=== PATIENT | male | born 1995 | race Caucasian/White ===

== ENCOUNTER → 2018-12-08 14:01 | Outpatient (CLI) | payer OTHER, SELFPAY ==
[2018-12-10 15:29] LABS: Hepatitis B Surf Ab Qualitativ Nonreactive (Nonreactive)
== END ==
PROVIDERS: PCP Family Medicine; Visit Provider Family Medicine
DX: Z01.84 Encounter for antibody response examination (principal)
CPT/HCPCS: 36415; 86706; 86787

== ENCOUNTER → 2021-09-09 15:29 | Outpatient (CLI) | payer OTHER, SELFPAY ==
[2021-09-09 15:50] LABS: COVID19 -Nasal RAPID Negative (Negative)
== END ==
PROVIDERS: PCP Family Medicine; Visit Provider Nurse Practitioner
DX: Z20.822 Contact with and (suspected) exposure to COVID-19 (principal)
CPT/HCPCS: 87635

== ENCOUNTER 2022-03-12 20:11 | Emergency (ER) | payer OTHER, SELFPAY ==
[2022-03-12] VITALS (8 sets, daily range): BP systolic 138–175; BP diastolic 84–93; PULSE 89–118; RESP 19–24; TEMP 36.3; O2SAT 89–99; BMI 27.9
[2022-03-12] MEDS: LORazepam 2 MG/ML INJ 6 MG IV (20:31)
[2022-03-12] MEDS: SODIUM CHLORIDE 0.9% 1,000 ML 1000 ML IV (20:31)
[2022-03-12] MEDS: ONDANSETRON 4 MG/2 ML INJ IV (20:32)
[2022-03-12 21:26] LABS: Add Manual Diff / Slide Review NO; Basophils Absolute Auto 0 /uL (0-100); Basophils Percent Auto 0.2 % (0-2); Eosinophils Absolute Auto 0 /uL (0-450); Eosinophils Percent Auto 0.1 % (2-4); Hematocrit 42.3 % (41-53); Hemoglobin 14.6 g/dL (13.5-17.5); Lymphocytes Absolute Auto 500 /uL (1100-4500); Lymphocytes Percent Auto 4.3 % (25-40); Mean Corpuscular HGB Conc 34.5 % (30-36); Mean Corpuscular Hemoglobin 30.2 PG (26-34); Mean Corpuscular Volume 87.7 fL (80-100); Monocytes Absolute Auto 500 /uL (0-900); Monocytes Percent Auto 4.9 % (3-14); Neutrophils Absolute Auto 9500 /uL (1500-7000); Neutrophils Percent Auto 90.5 % (50-75); Platelet Count 113 X10^3/uL (150-400); Red Blood Cell Count 4.82 X10^6/uL (4.5-5.9); Red Cell Distribution Width 14.2 % (11.6-14.8); White Blood Cell Count 10.5 X10^3/uL (4.5-11.0)
[2022-03-12] MEDS: THIAMINE 100 MG in SODIUM CHLORIDE 0.9% 100 ML 404 ML IV (21:30)
[2022-03-12 21:35] LABS: Acetaminophen < 10 ug/mL (10-30); Alanine Aminotransferase 51 IU/L (<50); Albumin 4.3 g/dL (3.5-5.0); Albumin Globulin Ratio 1.7 (1.0-2.8); Alkaline Phosphatase 50 U/L (38-126); Aspartate Aminotransferase 80 IU/L (17-59); BUN Creatinine Ratio 13.9 (6-22); Blood Urea Nitrogen 14 mg/dL (9-20); Calcium 8.7 mg/dL (8.4-10.2); Carbon Dioxide 28 mmol/L (22-32); Chloride 94 mmol/L (98-107); Estimated Glomerular Filt Rate > 60.0 mL/min (>60); Ethanol (ETOH) < 10 mg/dL; Globulin 2.6 g/dL (1.7-4.1); Glucose 194 mg/dL (70-100); HEMOLYSIS < 15 (0-50); Potassium 3.7 mmol/L (3.4-5.1); Salicylate < 1.0 mg/dL (<20); Sodium 133 mmol/L (137-145); Total Protein 6.9 g/dL (6.3-8.2)
[2022-03-12 22:04] LABS: Free T4, Direct Thyroxine 0.79 ng/dL (0.78-2.19)
[2022-03-12 22:18] LABS: Thyroid Stimulating Hormone 1.84 uIU/mL (0.47-4.68)
[2022-03-13] VITALS (7 sets, daily range): BP systolic 160; BP diastolic 90; PULSE 86–103; O2SAT 95–97
[2022-03-13 01:03] LABS: UR Morphine/Opiate cutoff 300 Negative (Negative); Ur Creatinine 20 (Normal); Ur Specific Gravity 1.015 (Normal); Urine Amphetamines Negative (Negative); Urine Barbiturates Negative (Negative); Urine Benzodiazepines Positive (Negative); Urine Cocaine Negative (Negative); Urine MDMA Negative (Negative); Urine Methadone Negative (Negative); Urine Methamphetamines Negative (Negative); Urine Oxycodone Negative (Negative); Urine Phencyclidine Negative (Negative); Urine Tetrahydrocannabinol Negative (Negative); Urine Tricyclic Antidepressant Negative (Negative); Urine pH 9 (Normal)
--- NOTE | 2022-03-13 02:08 | ED_ITS ---
HPI - General Adult General Chief complaint: Toxicology Problem Stated complaint: WITHDRAWALS Time Seen by Provider: 03/12/22 20:27 Source: patient Mode of arrival: Ambulatory History of Present Illness HPI narrative: 27-year-old gentleman presents looking for help with treatment for his alcohol use disorder. He notes that he is a binge drinker, typically hard alcohol however recently he has begun drinking more daily and will drink anywhere from half to 2/3 of a 5th of hard alcohol daily. He has gone to an occasional AA meeting but has not done any formal outpatient treatment. His last drink of alcohol was 24 hours ago and he is beginning to notice a significant agitation tremor and discomfort and is presenting to the emergency department looking for help. He is accompanied by his mother who is very supportive. They have plans on discharge for him to stay with his mother at her house to begin his journey to recovery. They have removed all alcohol from the house. He plans to follow- up with primary care provider to discuss medical management of his alcohol use disorder. Related Data Previous Rx's Medication Instructions Recorded chlordiazepoxide HCl 25 mg capsule 25 mg PO TID PRN #21 cap 03/13/22 Allergies Allergy/AdvReac Type Severity Reaction Status Date / Time amoxicillin Allergy Intermediate HIVES Verified 03/12/22 20:21 sulfamethoxazole Allergy Mild RASH Verified 03/12/22 20:21 [From Bactrim] trimethoprim [From Bactrim] Allergy Mild RASH Verified 03/12/22 20:21 Sulfa (Sulfonamide Allergy Unknown Verified 03/12/22 20:21 Antibiotics) [SULFA (SULFONAMIDE ANTIBIOTICS)] Review of Systems Review of Systems Narrative: Pertinent positive and negative findings as per HPI Remainder of review of systems is otherwise unremarkable for Constitutional: Fevers, chills, ENT: No sore throat, neck pain, ear pain CV: Chest pain, palpitations, Respiratory: Cough, wheeze, dyspnea : Dysuria, hematuria, Patient History Medical History (Updated 03/13/22 @ 04:03 by Amira Hair MD) Alcohol use disorder Social History Smoking Status: Never smoker Smoking Status: Never smoker alcohol intake frequency: 3 or more drinks per day Substance Use Type: does not use Exam Initial Vital Signs Initial Vital Signs: Vital Signs Temperature 97.4 F L 03/12/22 20:17 Pulse Rate 118 H 03/12/22 20:17 Respiratory Rate 24 03/12/22 20:17 Blood Pressure 175/93 H 03/12/22 20:17 Pulse Oximetry 99 03/12/22 20:17 General: Healthy appearing, in moderate amount of distress but still Able to give a complete and coherent history. Well-nourished well-developed HEENT: Moist mucous membranes, injected sclera with wide reactive pupils, Respiratory: Lungs are clear to auscultation, no wheezing no rales no rhonchi. Full and symmetrical air movement Cardiac: Tachycardic but otherwiseRegular rate and rhythm no murmurs no bruits Abdomen: Soft, nontender, no organomegaly, no liver tendernessgood bowel tones, no flank pain Skin: Warm and dry, no rashes, no spider hemangiomas Neurologic: Tremor noted, otherwise Grossly neurologically intact with no obvious asymmetries or abnormalities Extremities: No trauma, well perfused Psych: Cooperative, appropriate insight and affect Course Orders Ordered: ED Orders 03/12/22 21:15 Acetaminophen Stat Complete Blood Count AUTO DIFF Stat Comprehensive Metabolic Panel Stat Ethanol (ETOH) Stat Free T4, Direct Thyroxine Stat Salicylate Stat Thyroid Stimulating Hormone Stat 03/13/22 00:30 Urine Drug Screen, Rapid Stat Discontinued Medications Chlordiazepoxide HCl (Chlordiazepoxide 25 Mg Capsule) 25 mg PO NOW ONE Stop: 03/13/22 02:23 Last Admin: 03/13/22 02:31 Dose: 25 mg Documented by: DON Thiamine HCl 100 mg/ Sodium (Chloride) 101 mls @ 404 mls/hr IV NOW ONE Stop: 03/12/22 20:28 Last Infusion: 03/12/22 22:40 Dose: 0 mls/hr Documented by: Admin: 03/12/22 21:30 Dose: 404 mls/hr Documented by: DON Sodium Chloride (Normal Saline 0.9%) 1,000 mls @ 1,000 mls/hr IV BOLUS ONE Stop: 03/12/22 21:26 Last Infusion: 03/12/22 22:40 Dose: 0 mls/hr Documented by: Admin: 03/12/22 20:31 Dose: 1,000 mls/hr Documented by: CATERINA Lorazepam (Lorazepam 2 Mg/Ml Inj) 6 mg IV NOW ONE Stop: 03/12/22 20:28 Last Admin: 03/12/22 20:31 Dose: 6 mg Documented by: CATERINA Lorazepam (Lorazepam 2 Mg/Ml Inj) 4 mg IV NOW ONE Stop: 03/13/22 02:23 Last Admin: 03/13/22 02:32 Dose: 4 mg Documented by: DON Ondansetron HCl (Ondansetron 4 Mg/2 Ml Inj) 4 mg IV NOW ONE Stop: 03/12/22 20:28 Last Admin: 03/12/22 20:32 Dose: 4 mg Documented by: CATERINA Vital Signs Vital signs: Vital Signs - 8 hr 03/12/22 20:17 03/12/22 21:19 03/12/22 21:30 Temperature 97.4 F L Pulse Rate 118 H 97 H 100 H Respiratory Rate 24 20 Blood Pressure 175/93 H Pulse Oximetry 99 89 L 97 03/12/22 22:00 03/12/22 22:30 03/12/22 22:39 Temperature Pulse Rate 93 H 91 H 99 H Respiratory Rate 24 19 Blood Pressure 138/84 Pulse Oximetry 95 93 96 03/12/22 23:00 03/12/22 23:30 03/13/22 00:00 Temperature Pulse Rate 92 H 89 88 Respiratory Rate 20 19 Blood Pressure Pulse Oximetry 94 96 96 03/13/22 00:50 03/13/22 01:11 03/13/22 01:12 Temperature Pulse Rate 102 H 103 H 98 H Respiratory Rate Blood Pressure 160/90 H Pulse Oximetry 95 03/13/22 01:30 03/13/22 02:00 03/13/22 02:30 Temperature Pulse Rate 86 91 H 93 H Respiratory Rate Blood Pressure Pulse Oximetry 97 97 97 Medical Decision Making Lab Data Result diagrams: 03/12/22 21:15 03/12/22 21:15 Labs: Lab Results 03/12/22 03/12/22 03/12/22 Range/Units 21:15 21:15 21:15 WBC 10.5 (4.5-11.0) X10^3/uL RBC 4.82 (4.5-5.9) X10^6/uL Hgb 14.6 (13.5-17.5) g/dL Hct 42.3 (41-53) % MCV 87.7 (80-100) fL MCH 30.2 (26-34) PG MCHC 34.5 (30-36) % RDW 14.2 (11.6-14.8) % Plt Count 113 L (150-400) X10^3/uL Neut % (Auto) 90.5 H (50-75) % Lymph % (Auto) 4.3 L (25-40) % [place] % (Auto) 4.9 (3-14) % Eos % (Auto) 0.1 L (2-4) % Baso % (Auto) 0.2 (0-2) % Neut # (Auto) 9500 H (0904-6002) /uL Lymph # (Auto) 500 L (8920-6632) /uL [place] # (Auto) 500 (0-900) /uL Eos # (Auto) 0 (0-450) /uL Baso # (Auto) 0 (0-100) /uL Sodium 133 L (137-145) mmol/L Potassium 3.7 (3.4-5.1) mmol/L Chloride 94 L (98-107) mmol/L Carbon Dioxide 28 (22-32) mmol/L BUN 14 (9-20) mg/dL Creatinine 1.01 (0.66-1.25) mg/dL Estimated GFR > 60.0 (>60) mL/min BUN/Creatinine Ratio 13.9 (6-22) Glucose 194 H (70-100) mg/dL Calcium 8.7 (8.4-10.2) mg/dL Total Bilirubin 1.0 (0.2-1.3) mg/dL AST 80 H (17-59) IU/L ALT 51 H (<50) IU/L Alkaline Phosphatase 50 (38-126) U/L Total Protein 6.9 (6.3-8.2) g/dL Albumin 4.3 (3.5-5.0) g/dL Globulin 2.6 (1.7-4.1) g/dL Albumin/Globulin Ratio 1.7 (1.0-2.8) TSH 1.84 (0.47-4.68) uIU/mL Free T4 0.79 (0.78-2.19) ng/dL Salicylates < 1.0 (<20) mg/dL U Opiates 300ng/mL cut (Negative) Ur Oxycodone Screen (Negative) Urine Methadone Screen (Negative) Acetaminophen < 10 (10-30) ug/mL Ur Barbiturates Screen (Negative) U Tricyclic Antidepress (Negative) Ur Phencyclidine Scrn (Negative) Ur Amphetamines Screen (Negative) U Methamphetamines Scrn (Negative) Ur MDMA Scrn (Ecstasy) (Negative) U Benzodiazepines Scrn (Negative) Urine Cocaine Screen (Negative) U Marijuana (THC) Screen (Negative) Ethyl Alcohol < 10 ( - 10) mg/dL 03/13/22 Range/Units 00:30 WBC (4.5-11.0) X10^3/uL RBC (4.5-5.9) X10^6/uL Hgb (13.5-17.5) g/dL Hct (41-53) % MCV (80-100) fL MCH (26-34) PG MCHC (30-36) % RDW (11.6-14.8) % Plt Count (150-400) X10^3/uL Neut % (Auto) (50-75) % Lymph % (Auto) (25-40) % [place] % (Auto) (3-14) % Eos % (Auto) (2-4) % Baso % (Auto) (0-2) % Neut # (Auto) (0095-9436) /uL Lymph # (Auto) (8490-7994) /uL [place] # (Auto) (0-900) /uL Eos # (Auto) (0-450) /uL Baso # (Auto) (0-100) /uL Sodium (137-145) mmol/L Potassium (3.4-5.1) mmol/L Chloride (98-107) mmol/L Carbon Dioxide (22-32) mmol/L BUN (9-20) mg/dL Creatinine (0.66-1.25) mg/dL Estimated GFR (>60) mL/min BUN/Creatinine Ratio (6-22) Glucose (70-100) mg/dL Calcium (8.4-10.2) mg/dL Total Bilirubin (0.2-1.3) mg/dL AST (17-59) IU/L ALT (<50) IU/L Alkaline Phosphatase (38-126) U/L Total Protein (6.3-8.2) g/dL Albumin (3.5-5.0) g/dL Globulin (1.7-4.1) g/dL Albumin/Globulin Ratio (1.0-2.8) TSH (0.47-4.68) uIU/mL Free T4 (0.78-2.19) ng/dL Salicylates (<20) mg/dL U Opiates 300ng/mL cut Negative (Negative) Ur Oxycodone Screen Negative (Negative) Urine Methadone Screen Negative (Negative) Acetaminophen (10-30) ug/mL Ur Barbiturates Screen Negative (Negative) U Tricyclic Antidepress Negative (Negative) Ur Phencyclidine Scrn Negative (Negative) Ur Amphetamines Screen Negative (Negative) U Methamphetamines Scrn Negative (Negative) Ur MDMA Scrn (Ecstasy) Negative (Negative) U Benzodiazepines Scrn Positive H (Negative) Urine Cocaine Screen Negative (Negative) U Marijuana (THC) Screen Negative (Negative) Ethyl Alcohol ( - 10) mg/dL Urine Dip Bedside Urine Glucose Negative Bedside Urine Bilirubin - Negative Bedside Urine Ketone - Negative Urine Specific [place] 1.010 Bedside Urine Occult Blood - Negative Bedside Urine pH 8.0 Bedside Urine Protein - Negative Bedside Urine Urobilinogen - Negative Bedside Urine Nitrite - Negative Bedside Urine Leukocytes - Negative Esterase Point of care testing: Urine Dip Bedside Urine Glucose Negative Bedside Urine Bilirubin - Negative Bedside Urine Ketone - Negative Urine Specific [place] 1.010 Bedside Urine Occult Blood - Negative Bedside Urine pH 8.0 Bedside Urine Protein - Negative Bedside Urine Urobilinogen - Negative Bedside Urine Nitrite - Negative Bedside Urine Leukocytes - Negative Esterase [facility] Narrative Medical decision making narrative: 27-year-old gentleman with alcohol use disorder of for which he is seeking care. He still has multiple resources including a job, a place to live a caring family and family that will help him through the next 6 weeks as well as help him to go she [facility] to get the medical care that he will need well he is beginning his recovery. 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 Suggested that taking a week off work to deal with his withdrawal symptoms and use benzodiazepines as needed for his withdrawal is certainly a safer option. At this point he is absolutely not safe to return to work in 3 hours. He was amenable to to focusing on his recovery and a work notice is given. Initial CIWA score was 26 and he was given 6 mg of IV Ativan with significant with symptoms. He required additional 4 mg of Ativan and was discharged home to the care of his mother with of Librium taper decreasing by 25 mg a day over 60. . He does have plans to continue with AA meetings and follow-up within new primary care provider. Strongly advised at least a formal outpatient alcohol treatment program and he seemed quite interested in pursuing this. This point he is safe for discharge home Discharge Plan Departure Patient Disposition: Home Clinical Impression: Alcohol withdrawal syndrome, Alcohol use disorder, Elevated liver enzymes Instructions: DI for Alcohol Use Disorder Activity Restrictions/Additional Instructions: Thank you for coming in tonight I am glad that you are deciding to stop drinking. Your lab work did show slightly elevated liver enzymes the does indicate the alcohol is affecting your liver. Staying away from alcohol completely will allow your liver to return to normal. You are given Ativan in the emergency department to help with your acute withdrawal symptoms. I am giving you a prescription of Librium to help with y our withdrawal symptoms over the next 5 days. Day 1: 2 capsules every 8 hours Day 2: 2 capsules am and pm, 1 capsule mid day Day 3. 2 capsules bedtime, 1 capsule am and mid day Day 4. 1 capsule 3 times per day Day 5: 1 capsule 2 times a day Day 6: 1 capsule I encourage you to continue to work on setting up an appointment with Dr. Ramires to talk about additional options. You can look up alcoholic anonymous and find all of the meeting sitter available, including online meetings. I wish you the very best Prescriptions: New chlordiazepoxide HCl 25 mg capsule 25 mg PO TID PRN (Reason: alcohol withdrawal) Qty: 21 0RF Referrals: Siva Ponce MD [Primary Care Provider] - Stand Alone Forms: Naloxone Standing Order MICHEAL, Work Release Note
[2022-03-13] MEDS: chlordiazePOXIDE 25 MG CAPSULE PO (02:31)
[2022-03-13] MEDS: LORazepam 2 MG/ML INJ 4 MG IV (02:32)
== END 2022-03-13 03:01 | disposition home or self-care (01) ==
PROVIDERS: Emergency Provider Emergency Medicine; PCP Family Medicine
DX: F10.139 Alcohol abuse with withdrawal, unspecified (principal); R74.8 Abnormal levels of other serum enzymes; Y90.0 Blood alcohol level of less than 20 mg/100 ml
CPT/HCPCS: 36415; 80053; 80305; 80320; 80329; 81003; 84439; 84443; 85025; 96361; 96365; 96375; 96376; 99284; G0480; J2060; J2405

== ENCOUNTER → 2023-01-03 13:39 | Outpatient (ROUT) | payer OTHER, SELFPAY ==
[2023-01-03 14:27] LABS: Influenza A - CEPHEID Flu A NEGATIVE (NEGATIVE); Influenza B - CEPHEID Flu B NEGATIVE (NEGATIVE); Respiratory Syncytial Virus Negative (Negative)
[2023-01-03 14:28] LABS: COVID-19 CEPHEID 4-PLEX PCR Negative (Negative)
== END ==
PROVIDERS: PCP Family Medicine; Visit Provider Registered Nurse
DX: R05.1 Acute cough (principal); J02.9 Acute pharyngitis, unspecified
CPT/HCPCS: 0241U

== ENCOUNTER → 2023-01-07 12:08 | Outpatient (ROUT) | payer OTHER, SELFPAY ==
[2023-01-07 13:01] LABS: Influenza A - CEPHEID Flu A NEGATIVE (NEGATIVE); Influenza B - CEPHEID Flu B NEGATIVE (NEGATIVE); Respiratory Syncytial Virus Negative (Negative)
[2023-01-07 13:13] LABS: COVID-19 CEPHEID 4-PLEX PCR Negative (Negative)
== END ==
PROVIDERS: PCP Family Medicine; Visit Provider Registered Nurse
DX: J06.9 Acute upper respiratory infection, unspecified (principal)
CPT/HCPCS: 0241U

== ENCOUNTER → 2023-05-07 08:37 | Outpatient (CLI) | payer OTHER, SELFPAY ==
--- NOTE | 2023-05-07 | DI.US.S_ITS ---
PROCEDURE: US RENAL COMPLETE INDICATIONS: CHRONIC KIDNEY DISEASE STAGE 3A TECHNIQUE: Real-time scanning was performed of the kidneys and bladder, with image documentation. COMPARISON: None. FINDINGS: Kidneys: Kidneys are normal in size. Right kidney measures 10.8 cm long; left kidney measures 11.1 cm long. Right renal cortical thickness is 1.0 cm; left renal cortical thickness is 1.4 cm. Renal cortical echotexture is increased. No hydronephrosis or nephrolithiasis. No suspicious solid mass lesions. Bladder: Pre-void bladder volume is 345 mL. Post-void residual is 15 mL. Pre-void images demonstrate no intraluminal masses or stones. On pre-void images, both ureteral jets are noted with color Doppler interrogation. (Of note, ureteral jets may not be detectable in up to 25% of cases due to insufficient differences in specific gravity between ureteral and bladder urine). Miscellaneous: No free pelvic fluid. IMPRESSION: Increased renal parenchymal echogenicity, consistent with chronic parenchymal disease. Dictated by: Andre Cool M.D. on 05/07/2023 at 9:50 Approved by: Andre Cool M.D. on 05/07/2023 at 9:51
== END ==
PROVIDERS: PCP Family Medicine; Referring Provider Family Medicine; Visit Provider Family Medicine
DX: N18.31 Chronic kidney disease, stage 3a (principal)
CPT/HCPCS: 76770

== ENCOUNTER → 2023-07-01 16:15 | Outpatient (CLI) | payer OTHER, SELFPAY ==
[2023-07-01 17:25] LABS: Hemoglobin 15.4 g/dL (13.5-17.5)
[2023-07-01 17:43] LABS: BUN Creatinine Ratio 17.6 (6-22); Blood Urea Nitrogen 21 mg/dL (9-20); Calcium 8.9 mg/dL (8.4-10.2); Carbon Dioxide 31 mmol/L (22-32); Chloride 99 mmol/L (98-107); Estimated Glomerular Filt Rate > 60 mL/min (>60); Glucose 95 mg/dL (70-100); HEMOLYSIS 26 (0-50); Potassium 3.5 mmol/L (3.4-5.1); Sodium 139 mmol/L (137-145)
[2023-07-01 17:44] LABS: Creatinine Urine Random 90.4 mg/dL; Protein (Total) Urine Random 6 mg/dL (0-12); Protein Creatinine Ratio Urine 0.06 GRAM/24H
== END ==
PROVIDERS: PCP Family Medicine; Referring Provider Student in an Organized Health Care Education/Training Program; Visit Provider Student in an Organized Health Care Education/Training Program
DX: N05.9 Unspecified nephritic syndrome with unspecified morphologic changes (principal); D64.9 Anemia, unspecified; R80.9 Proteinuria, unspecified
CPT/HCPCS: 36415; 80048; 82570; 84156; 85014; 85018

== ENCOUNTER 2023-09-20 01:47 | Emergency (ER) | payer OTHER, SELFPAY ==
[2023-09-20] VITALS (10 sets, daily range): BP systolic 126–153; BP diastolic 78–104; PULSE 75–106; RESP 18–20; TEMP 36.9; O2SAT 94–98; BMI 26.5
--- NOTE | 2023-09-20 01:49 | ED.GENADULT ---
HPI - General Adult General Chief complaint: Toxicology Problem Stated complaint: withdrawl Time Seen by Provider: 09/20/23 01:48 History of Present Illness HPI narrative: 28-year old male, nonsmoker with heavy alcohol history presents with family in the chief complaint of wanting help with quitting alcohol. He states he drinks a 1/5th of whiskey daily and last drink was about 6 hours ago. He is gone through withdrawals before but has never had seizure. He was most recently at an alcohol detox facility about a year and a half ago and is hoping to find a program to help him through this. He has some mild headache and is feeling agitated and anxious. He feels sweaty with a racing heart, nauseated with minimal abdominal pain. He denies any auditory, visual or tactile hallucinations. he states that up until about a week or 2 ago he would typically binge drink for days at a time and then go without for awhile before drinking heavy for a few days again but for the past week or 2 he has been drinking at least 1/5th per day. He mentions that he works at the [employer] and that he would like to pursue a program through his work Related Data Previous Rx's Medication Instructions Recorded chlordiazepoxide HCl 25 mg capsule 25 mg PO TID PRN alcohol 03/13/22 withdrawal #21 caps chlordiazepoxide HCl 25 mg capsule 25 mg PO BID PRN alcohol 09/20/23 withdrawal #32 caps Allergies Allergy/AdvReac Type Severity Reaction Status Date / Time amoxicillin Allergy Intermediate HIVES Verified 03/12/22 20:21 sulfamethoxazole Allergy Mild RASH Verified 03/12/22 20:21 [From Bactrim] trimethoprim [From Bactrim] Allergy Mild RASH Verified 03/12/22 20:21 Sulfa (Sulfonamide Allergy Unknown Verified 03/12/22 20:21 Antibiotics) [SULFA (SULFONAMIDE ANTIBIOTICS)] Review of Systems Review of Systems Narrative: GENERAL: see HPI HEENT: Denies sinus pain, ear pain, sore throat, difficulty swallowing, dizziness. RESPIRATORY: Denies dyspnea, cough, wheezing, hemoptysis, sputum. CARDIOVASCULAR: see HPI GASTROINTESTINAL: see HPI : Denies dysuria, frequency, incontinence, hematuria, urinary retention. MUSCULOSKELETAL: denies weakness, joint pain, or bony pain SKIN: Denies rash, skin lesions, or other NEUROLOGIC: see HPI PSYCHIATRIC: see HPI 12 point review of systems is negative except for those stated above Patient History Medical History (Updated 09/20/23 @ 05:01 by Nicolas Goode DO) Alcohol use disorder Social History Smoking Status: Never smoker Smoking Status: Never smoker alcohol intake frequency: 3 or more drinks per day Substance Use Type: does not use Exam Narrative Exam Narrative: GENERAL: [28] year old patient appears stated age. Well-developed patient, in moderate distress, anxious and diaphoretic HEAD: Atraumatic. Normocephalic. EYES: Pupils equal round and reactive. Extraocular motions intact. No scleral icterus. No injection or drainage. ENT: Nose without bleeding, purulent drainage. Throat without erythema, tonsillar hypertrophy or exudate. Airway patent. NECK: Trachea midline. Non tender CARDIOVASCULAR: tachycardic but regular rhythm without murmurs, gallops, or rubs. RESPIRATORY: Clear to auscultation. Breath sounds equal bilaterally. No wheezes, rales, or rhonchi. GASTROINTESTINAL: Abdomen soft, non-tender, nondistended. EXTREMITIES: No edema or joint tenderness. BACK: Nontender without deformity or crepitance. No flank tenderness. NEURO: AOx3. SKIN: No rash or erythema of visible areas Initial Vital Signs Initial Vital Signs: Vital Signs Temperature 98.4 F 09/20/23 01:50 Pulse Rate 106 H 09/20/23 01:50 Respiratory Rate 18 09/20/23 01:50 Blood Pressure 145/104 H 09/20/23 01:50 Pulse Oximetry 98 09/20/23 01:50 Oxygen Delivery Method Room Air 09/20/23 01:50 Course Course Course Narrative: TANJA-Fabiano for Alcohol Withdrawal from [employer] on 09/20/2023 All calculations should be rechecked by clinician prior to use RESULT SUMMARY: 19 points Patients with scores >= may require medication for withdrawal. INPUTS: Nausea/vomiting ?> 4 = Intermittent nausea with dry heaves Tremor ?> 4 = Moderate, with patient's arms extended Paroxysmal sweats ?> 3 = (More severe symptoms) Anxiety ?> 3 = (More severe symptoms) Agitation ?> 3 = (More severe symptoms) Tactile disturbances ?> 0 = None Auditory disturbances ?> 0 = Not present Visual disturbances ?> 0 = Not present Headache/fullness in head ?> 2 = Mild Orientation/clouding of sensorium ?> 0 = Oriented, can do serial additions Orders Ordered: ED Orders 09/20/23 02:04 Complete Blood Count AUTO DIFF Stat Comprehensive Metabolic Panel Stat Ethanol (ETOH) Stat Lipase Stat Magnesium Stat 09/20/23 02:30 Urine Microscopic Stat 09/20/23 03:15 [place] [facility] [place] Discontinued Medications Sodium Chloride (Normal Saline 0.9%) 1,000 mls @ 1,000 mls/hr IV BOLUS ONE Stop: 09/20/23 02:56 Last Infusion: 09/20/23 04:36 Dose: Infused Documented By: Admin: 09/20/23 02:17 Dose: 1,000 mls/hr Documented By: MAYNOR Ondansetron HCl (Ondansetron 4 Mg/2 Ml Inj) 4 mg IV NOW ONE Stop: 09/20/23 01:58 Last Admin: 09/20/23 02:17 Dose: 4 mg Documented By: MAYNOR Phenobarbital (Phenobarbital 65 Mg/Ml Vial) 260 mg IV NOW ONE Stop: 09/20/23 01:58 Last Admin: 09/20/23 02:18 Dose: 260 mg Documented By: MAYNOR Phenobarbital (Phenobarbital 65 Mg/Ml Vial) 260 mg IV NOW ONE Stop: 09/20/23 02:56 Last Admin: 09/20/23 03:01 Dose: 260 mg Documented By: MAYNOR Vital Signs Vital signs: Vital Signs - 8 hr 09/20/23 01:50 09/20/23 01:57 09/20/23 02:00 Temperature 98.4 F Pulse Rate 106 H 75 93 H Respiratory Rate 18 Blood Pressure 145/104 H Pulse Oximetry 98 98 97 Oxygen Delivery Method Room Air 09/20/23 02:08 09/20/23 02:08 09/20/23 02:30 Temperature Pulse Rate 90 Respiratory Rate Blood Pressure 153/90 H 150/87 H Pulse Oximetry 97 Oxygen Delivery Method 09/20/23 02:30 09/20/23 03:00 09/20/23 03:00 Temperature Pulse Rate 90 91 H Respiratory Rate 18 Blood Pressure 143/88 H Pulse Oximetry 97 96 Oxygen Delivery Method Room Air 09/20/23 03:30 09/20/23 03:30 09/20/23 04:00 Temperature Pulse Rate 86 Respiratory Rate 20 Blood Pressure 134/83 127/83 Pulse Oximetry 94 Oxygen Delivery Method 09/20/23 04:00 09/20/23 04:30 09/20/23 04:30 Temperature Pulse Rate 82 85 Respiratory Rate Blood Pressure 126/78 Pulse Oximetry 96 95 Oxygen Delivery Method Room Air Room Air 09/20/23 05:00 09/20/23 05:00 Temperature Pulse Rate 93 H Respiratory Rate Blood Pressure 134/90 Pulse Oximetry 97 Oxygen Delivery Method Room Air Medical Decision Making Lab Data 09/20/23 02:04 09/20/23 02:04 Labs: Lab Results 09/20/23 09/20/23 Range/Units 02:04 02:30 WBC 10.6 (4.5-11.0) X10^3/uL RBC 5.76 (4.5-5.9) X10^6/uL Hgb 17.4 (13.5-17.5) g/dL Hct 50.1 (41-53) % MCV 87.1 (80-100) fL MCH 30.1 (26-34) PG MCHC 34.6 (30-36) % RDW 14.7 (11.6-14.8) % Plt Count 258 (150-400) X10^3/uL Neut % (Auto) 71.8 (50-75) % Lymph % (Auto) 19.9 L (25-40) % [place] % (Auto) 7.7 (3-14) % Eos % (Auto) 0.3 L (2-4) % Baso % (Auto) 0.3 (0-2) % Neut # (Auto) 7600 H (1893-7247) /uL Lymph # (Auto) 2100 (3893-0047) /uL [place] # (Auto) 800 (0-900) /uL Eos # (Auto) 0 (0-450) /uL Baso # (Auto) 0 (0-100) /uL Sodium 137 (137-145) mmol/L Potassium 3.7 (3.4-5.1) mmol/L Chloride 96 L (98-107) mmol/L Carbon Dioxide 26 (22-32) mmol/L BUN 6 L (9-20) mg/dL Creatinine 1.20 (0.66-1.25) mg/dL Estimated GFR > 60 (>60) mL/min BUN/Creatinine Ratio 5.0 L (6-22) Glucose 119 H (70-100) mg/dL Calcium 9.9 (8.4-10.2) mg/dL Magnesium 2.0 (1.6-2.3) mg/dL Total Bilirubin 1.1 (0.2-1.3) mg/dL AST 102 H (17-59) IU/L ALT 82 H (<50) IU/L Alkaline Phosphatase 82 (38-126) U/L Total Protein 8.2 (6.3-8.2) g/dL Albumin 4.9 (3.5-5.0) g/dL Globulin 3.3 (1.7-4.1) g/dL Albumin/Globulin Ratio 1.5 (1.0-2.8) Lipase 223 (23-300) U/L Urine RBC None seen (0-5/HPF) Urine WBC None seen (0-5/HPF) Ur Squamous Epith Cells None seen (0-5/HPF) Amorphous Sediment 4+ Urine Bacteria None seen (None) Ur Culture Indicated? Cult not indicated Ethyl Alcohol 92 H ( - 10) mg/dL Urine Dip Bedside Urine Glucose Negative Bedside Urine Bilirubin - Negative Bedside Urine Ketone +/- 5 Urine Specific [place] 1.015 Bedside Urine Occult Blood - Negative Bedside Urine pH 6 Bedside Urine Protein +/- 15 Bedside Urine Urobilinogen - Negative Bedside Urine Nitrite - Negative Bedside Urine Leukocytes - Negative Esterase Point of care testing: Urine Dip Bedside Urine Glucose Negative Bedside Urine Bilirubin - Negative Bedside Urine Ketone +/- 5 Urine Specific [place] 1.015 Bedside Urine Occult Blood - Negative Bedside Urine pH 6 Bedside Urine Protein +/- 15 Bedside Urine Urobilinogen - Negative Bedside Urine Nitrite - Negative Bedside Urine Leukocytes - Negative Esterase [facility] Narrative Medical decision making narrative: [28] year old patient presents with concerns of alcohol withdrawal and desire for detox Prior Charts reviewed in our EMR Primary Historian: patient Labs reviewed and interpreted by myself: no leukocytosis or left shift, no signs of anemia, primary electrolytes and kidney function at baseline, slight elevation in LFTs not surprising given alcohol history, Etoh 92 on arrival Tx: Phenobarb 260 x2 Re-evaluation: patient with significant improvement after phenobarb, CIWA down to low single digits, resting comfortably Patient's symptoms improved over duration of stay with above-stated therapies. He no longer wants to stay to speak with social work and would prefer to go home and use resources there to help establish. consult placed to social work and encouraged to call patient later today Findings and discharge diagnosis discussed with patient/family followed by verbalization of understanding Return precautions discussed with patient/family whom verbalize understanding of diagnosis and plan Discharge Plan Departure Patient Disposition: Home Clinical Impression: Alcohol withdrawal syndrome Instructions: DI for Alcohol Use Disorder Activity Restrictions/Additional Instructions: *You have been diagnosed with [ alcohol abuse and withdrawal] *What to do: *Please continue to take your regular medications as directed. [x ] New medication prescriptions sent to your pharmacy: [[facility] ] [ ] New medication written as a paper prescription [ ] No new medications given *Please follow up with your primary care provider in 2-3 days, call for an appointment. Let them know you were seen in the Emergency Department and that we ask that you be seen in follow up. We will electronically transmit a record of today's note if your PCP is in our system *If you do not have a primary care provider please contact the [facility] Resource line at [phone]. They will ask some questions about your medical history and help get you set up with a doctor in the community. *Return to Emergency Department if you should have any new, worsening or concerning symptoms, such as [fever greater than 101 F, shaking chills, worsening pain, persistent vomiting or other bothersome symptoms] Prescriptions: New chlordiazepoxide HCl 25 mg capsule 25 mg PO BID PRN (Reason: alcohol withdrawal) Qty: 32 0RF Rx Instructions: Day 1: 50mg POq4 Day 2: 50mg POq6 Day 3: 50mg POq8 Day 4: 50mg POq12 Day 5: 50mg POqhs #32 No Action chlordiazepoxide HCl 25 mg capsule 25 mg PO TID PRN (Reason: alcohol withdrawal) Qty: 21 0RF Referrals: Alcohol [facility] [Outside] [facility] [Outside] Alcohol [facility] [Outside] Abelino Ramires MD [Primary Care Provider] - Stand Alone Forms: Patient Portal/API
--- NOTE | 2023-09-20 02:07 | PC.NURSE ---
During triage, pt became nauseated and feeling like he was going to pass out. BP at this time was 82/51. Provider in room at this time.
[2023-09-20 02:13] LABS: Add Manual Diff / Slide Review NO; Basophils Absolute Auto 0 /uL (0-100); Basophils Percent Auto 0.3 % (0-2); Eosinophils Absolute Auto 0 /uL (0-450); Eosinophils Percent Auto 0.3 % (2-4); Hematocrit 50.1 % (41-53); Hemoglobin 17.4 g/dL (13.5-17.5); Lymphocytes Absolute Auto 2100 /uL (1100-4500); Lymphocytes Percent Auto 19.9 % (25-40); Mean Corpuscular HGB Conc 34.6 % (30-36); Mean Corpuscular Hemoglobin 30.1 PG (26-34); Mean Corpuscular Volume 87.1 fL (80-100); Monocytes Absolute Auto 800 /uL (0-900); Monocytes Percent Auto 7.7 % (3-14); Neutrophils Absolute Auto 7600 /uL (1500-7000); Neutrophils Percent Auto 71.8 % (50-75); Platelet Count 258 X10^3/uL (150-400); Red Blood Cell Count 5.76 X10^6/uL (4.5-5.9); Red Cell Distribution Width 14.7 % (11.6-14.8); White Blood Cell Count 10.6 X10^3/uL (4.5-11.0)
[2023-09-20] MEDS: SODIUM CHLORIDE 0.9% 1,000 ML 1000 ML IV (02:17)
[2023-09-20] MEDS: ONDANSETRON 4 MG/2 ML INJ IV (02:17)
[2023-09-20] MEDS: PHENobarbital 65 MG/ML VIAL 260 MG IV ×2 (02:18→03:01)
[2023-09-20 02:24] LABS: Alanine Aminotransferase 82 IU/L (<50); Albumin 4.9 g/dL (3.5-5.0); Albumin Globulin Ratio 1.5 (1.0-2.8); Alkaline Phosphatase 82 U/L (38-126); Aspartate Aminotransferase 102 IU/L (17-59); Bilirubin Total 1.1 mg/dL (0.2-1.3); Blood Urea Nitrogen 6 mg/dL (9-20); Calcium 9.9 mg/dL (8.4-10.2); Carbon Dioxide 26 mmol/L (22-32); Chloride 96 mmol/L (98-107); Estimated Glomerular Filt Rate > 60 mL/min (>60); Ethanol (ETOH) 92 mg/dL; Globulin 3.3 g/dL (1.7-4.1); Glucose 119 mg/dL (70-100); HEMOLYSIS 21 (0-50); Lipase 223 U/L (23-300); Potassium 3.7 mmol/L (3.4-5.1); Sodium 137 mmol/L (137-145); Total Protein 8.2 g/dL (6.3-8.2)
[2023-09-20 03:19] LABS: Amorphous Sediment Urine 4+; Bacteria Urine None Seen; Culture Indicated Urine Cult Not Indicated; RBC Urine None Seen (0-5/HPF); Squamous Epithelial Cell Urine None Seen (0-5/HPF); WBC Urine None Seen (0-5/HPF)
--- NOTE | 2023-09-20 13:59 | CM.SWNOTE ---
ED CASHIER GENERAL follow up note CASHIER GENERAL receives consult for follow up call. CASHIER GENERAL calls patient, no answer, CASHIER GENERAL is not able to leave VM due to voicemail box full. Angeles Moreira, EMPLOYMENT AND CLAIMS AIDE
== END 2023-09-20 05:09 | disposition home or self-care (01) ==
PROVIDERS: Emergency Provider Emergency Medicine; PCP Family Medicine
DX: F10.939 Alcohol use, unspecified with withdrawal, unspecified (principal)
CPT/HCPCS: 36415; 80053; 80320; 81003; 81015; 83690; 83735; 85025; 96361; 96374; 96375; 96376; 99284; J2405; J2560

== ENCOUNTER 2024-11-15 19:33 | Emergency (ER) | payer OTHER, SELFPAY ==
[2024-11-15 19:35] VITALS: BP 139/90; PULSE 83; RESP 16; TEMP 37.1; O2SAT 99; BMI 27.9
--- NOTE | 2024-11-15 19:50 | ED.GENADULT ---
HPI - General Adult General Chief complaint: Fever Stated complaint: flu like symptoms, facial and ear rash Time Seen by Provider: 11/15/24 19:36 Source: patient Mode of arrival: Family Vehicle History of Present Illness HPI narrative: Patient is a 29-year-old male. Here evaluation of a couple days of flu-like symptoms to include fevers and chills and a sore throat. He was now developing a rash on his face. In front of both of his ears. He was also now has a sore throat. He does have some sinus congestion. No problems breathing. No coughing. No rash on other parts of his body. No new exposures. Related Data Previous Rx's Medication Instructions Recorded chlordiazepoxide HCl 25 mg capsule 25 mg PO TID PRN alcohol 03/13/22 withdrawal #21 caps chlordiazepoxide HCl 25 mg capsule 25 mg PO BID PRN alcohol 09/20/23 withdrawal #32 caps cephalexin 500 mg capsule 500 mg PO BID 10 days #20 caps 11/15/24 Allergies Allergy/AdvReac Type Severity Reaction Status Date / Time amoxicillin Allergy Intermediate HIVES Verified 03/12/22 20:21 sulfamethoxazole Allergy Mild RASH Verified 03/12/22 20:21 [From Bactrim] trimethoprim [From Bactrim] Allergy Mild RASH Verified 03/12/22 20:21 Sulfa (Sulfonamide Allergy Unknown Verified 03/12/22 20:21 Antibiotics) [SULFA (SULFONAMIDE ANTIBIOTICS)] Review of Systems Review of Systems ROS Unobtainable: All systems reviewed & are unremarkable except as noted in HPI and below Patient History Medical History Alcohol use disorder Social History Smoking Status: Never smoker Smoking Status: Never smoker alcohol intake frequency: 3 or more drinks per day Alcohol type: hard liquor Exam Initial Vital Signs Initial Vital Signs: Vital Signs Temperature 98.8 F 11/15/24 19:35 Pulse Rate 83 11/15/24 19:35 Respiratory Rate 16 11/15/24 19:35 Blood Pressure 139/90 11/15/24 19:35 Pulse Oximetry 99 11/15/24 19:35 Oxygen Delivery Method Room Air 11/15/24 19:35 Const General: cooperative and comfortable HENCO Head: normal to inspection and normocephalic Ears: TM's normal bilaterally and EAC's normal Mouth: tongue normal and moist mucous membranes Throat: uvula midline and posterior oropharynx abnormal edema, erythema and exudates Resp Effort & Inspection: normal respiratory effort Auscultation: clear to auscultation bilaterally Cardio Rate: regular rate Skin Other: Patient with areas of what appears to be cellulitis located around his mouth and under his nose. Also located on his bilateral cheeks and in front of both ears. No vesicles. No pustules. Neuro General: patient alert and patient awake Course Orders Ordered: ED Orders 11/15/24 19:58 Strep Grp A by PCR Rapid Stat Throat Culture Stat Discontinued Medications Cephalexin HCl (Cephalexin 250 Mg Capsule) 500 mg PO NOW ONE Stop: 11/15/24 20:19 Vital Signs Vital signs: Vital Signs - 8 hr 11/15/24 19:35 Temperature 98.8 F Pulse Rate 83 Respiratory Rate 16 Blood Pressure 139/90 Pulse Oximetry 99 Oxygen Delivery Method Room Air Medical Decision Making Lab Data Labs: Lab Results 11/15/24 Range/Units 19:58 Group A Strep (PCR) Negative (Negative) MDM Narrative Medical decision making narrative: Patient's rapid strep is negative however his physical exam is consistent with strep throat. Also consistent with a staph/strep infection on his face. Low suspicion that this is zoster. No abscesses. Plan will be to place him on antibiotics. First dose given here in the emergency department and a prescription was sent to the pharmacy of his choice. He was no respiratory distress. There was a throat culture pending at the time of discharge. He reports no concern for sexually transmitted diseases. He was given return precautions and follow-up instructions. He expressed understanding and agreement. Discharge Plan Departure Patient Disposition: Home Clinical Impression: Pharyngitis, Cellulitis Instructions: Sore Throat Activity Restrictions/Additional Instructions: I do recommend that you continue to take all of your medications as directed. Contact your primary doctor for a follow-up. Return to the emergency department for new or worsening symptoms. Prescriptions: New cephalexin 500 mg capsule 500 mg PO BID 10 Days Qty: 20 0RF No Action chlordiazepoxide HCl 25 mg capsule 25 mg PO TID PRN (Reason: alcohol withdrawal) Qty: 21 0RF chlordiazepoxide HCl 25 mg capsule 25 mg PO BID PRN (Reason: alcohol withdrawal) Qty: 32 0RF Rx Instructions: Day 1: 50mg POq4 Day 2: 50mg POq6 Day 3: 50mg POq8 Day 4: 50mg POq12 Day 5: 50mg POqhs #32 Referrals: Abelino Ramires MD [Primary Care Provider] - Stand Alone Forms: Patient Portal/API/Survey
[2024-11-15 20:09] LABS: Strep Grp A by PCR Rapid Negative (Negative)
[2024-11-15] MEDS: cephALEXin 250 MG CAPSULE 500 MG PO (20:22)
== END 2024-11-15 20:29 | disposition home or self-care (01) ==
PROVIDERS: Emergency Provider Emergency Medicine; PCP Family Medicine
DX: J02.9 Acute pharyngitis, unspecified (principal); L03.211 Cellulitis of face
CPT/HCPCS: 87070; 87651; 99283